=== PATIENT | female | born 1965 | race Caucasian/White ===

== ENCOUNTER 2018-09-06 13:40 | Emergency (ER) | payer SELFPAY ==
[~2018-09-06] VITALS: Ht 157.5 cm; Wt 72.6 kg
--- NOTE | 2018-09-06 14:09 | ED Headache ---
General Chief Complaint: Head/Cervical Problems Stated Complaint: MIGRAINE X 3 WKS Nursing Triage Note: Patient reports headache x 3 weeks. reports this is the 1st time she has seen a provider. states advil x 1 last night for 1st time. reports emesis last evening Nursing Sepsis Screen: No Definite Risk Source: patient Exam Limitations: no limitations History of Present Illness Date Seen by Provider: Sep 06, 2018 Time Seen by Provider: 14:09 Initial Comments 52-year-old female patient presents with 3 week onset of headache. Patient reports a history of headaches, but states this is much worse than her usual headaches. [place]. Patient does complain of sinus pressure. States she was exposed to "toxic mold" when she left here previously. She has had N/V the last 2 days. Timing/Duration: other (3 week onset) Severity/Quality: pressure (sinus pressure), throbbing Location: frontal Prior Headaches/Recent Trauma: other (patient reports history of headaches, but states this is different) Modifying Factors: worse with other (no improvement with Advil last night 1 dose.) Allergies and Home Medications Allergies Coded Allergies: No Known Drug Allergies (Unverified , 09/06/18) Home Medications No Active Prescriptions or Reported Meds Patient Home Medication List Home Medication List Reviewed: Yes Review of Systems Review of Systems Constitutional: No chills, No diaphoresis, No dizziness, No fever, No malaise, No weakness Eyes: Denies Blurred Vision, Denies Drainage, Denies Decreased Acuity, Denies Foreign Body Sensation, Denies Inflammation, Denies Pain, Denies Photophobia Ears, Nose, Mouth, Throat: denies ear pain, denies ear discharge; nose pain ((+) sinus pressure/pain and nasal congestion); denies nose discharge, denies epistaxis, denies mouth pain, denies mouth swelling, denies throat pain, denies throat swelling Respiratory: No cough, No dyspnea on exertion, No phlegm, No short of breath, No stridor, No wheezing Cardiovascular: No chest pain, No edema, No palpitations, No syncope Gastrointestinal: No abdominal pain, No constipation, No diarrhea; loss of appetite, nausea, vomiting Genitourinary: No dysuria, No frequency, No hematuria Musculoskeletal: no symptoms reported Skin: no symptoms reported Psychiatric/Neurological: Headache; Denies Numbness, Denies Paresthesia, Denies Seizure, Denies Tingling, Denies Weakness All Other Systems Reviewed Negative Unless Noted: Yes (Negative excepted noted.) Past [id number]-[id number]-[id number] Hx Past Med/Social Hx: Reviewed and Corrections made Patient Social History Alcohol Use: Denies Use Recreational Drug Use: No 2nd Hand Smoke Exposure: No Recent Foreign Travel: No Contact w/Someone Who Travel: No Recent Infectious Disease Expo: No Recent Hopitalizations: No Seasonal Allergies Seasonal Allergies: Yes (seasonal and mold allergies.) Past Medical History Surgeries: No Respiratory: Yes Asthma (as a kid) Cardiac: No Neurological: Yes Headaches /Migraines Genitourinary: No Gastrointestinal: No Musculoskeletal: No Endocrine: No HEENT: No Cancer: No Psychosocial: No Integumentary: No Blood Disorders: No Family Medical History Reviewed Nursing Family Hx No Pertinent Family Hx Physical Exam Vital Signs Vital Signs - First Documented 09/06/18 13:52 Temp 98.2 Pulse 100 Resp 18 B/P (MAP) 145/110 (122) Pulse Ox 95 Capillary Refill : Less Than 3 Seconds Height, Weight, BMI Height: 5'2.00" Weight: 160lbs. oz. [id number]; BMI Method:Stated General Appearance: WD/WN, no apparent distress HEENT: PERRL/EOMI, TMs normal, pharynx normal, other (positive nasal congestion. Positive maxillary sinus tenderness. No drainage noted.) Neck: full range of motion, supple, lymphadenopathy (R), lymphadenopathy (L), tender lateral (posterior muscle spasm with tenderness.); No tender midline Cardiovascular: normal peripheral pulses, regular rate, rhythm, no edema, no gallop, no JVD, no murmur Respiratory: lungs clear, normal breath sounds, no respiratory distress, no ac cessory muscle use Gastrointestinal: normal bowel sounds, non tender, soft, no organomegaly; No distended Back: normal inspection, no CVA tenderness, no vertebral tenderness Extremities: no pedal edema, no calf tenderness, normal capillary refill Psychiatric: alert, oriented x 3 Crainal Nerves: normal hearing, normal speech, PERRL; No abnormal pupil position, No abnormal speech, No facial asymmetry, No facial droop, No facial paresthesias, No facial weakness, No gaze palsy, No hearing deficit (R), No hearing deficit (L), No tongue deviation to R, No tongue deviation to L Coordination/Gait: normal finger to nose, normal gait, negative Romberg's sign Motor/Sensory: no motor deficit, no sensory deficit, no pronator drift Skin: normal color, warm/dry Progress/Results/Core Measures Results/Orders Lab Results Laboratory Tests Test 09/06/18 14:40 Range/Units White Blood Count 14.9 H 4.3-11.0 10^3/uL Red Blood Count 5.19 4.35-5.85 10^6/uL Hemoglobin 16.7 H 11.5-16.0 G/DL Hematocrit 48 35-52 % Mean Corpuscular Volume 92 80-99 FL Mean Corpuscular Hemoglobin 32 25-34 PG Mean Corpuscular Hemoglobin Concent 35 32-36 G/DL Red Cell Distribution Width 12.5 10.0-14.5 % Platelet Count 270 130-400 10^3/uL Mean Platelet Volume 10.0 7.4-10.4 FL Neutrophils (%) (Auto) 79 H 42-75 % Lymphocytes (%) (Auto) 15 12-44 % Monocytes (%) (Auto) 6 0-12 % Eosinophils (%) (Auto) 0 0-10 % Basophils (%) (Auto) 0 0-10 % Neutrophils # (Auto) 11.8 H 1.8-7.8 X 10^3 Lymphocytes # (Auto) 2.2 1.0-4.0 X 10^3 Monocytes # (Auto) 0.9 0.0-1.0 X 10^3 Eosinophils # (Auto) 0.0 0.0-0.3 10^3/uL Basophils # (Auto) 0.0 0.0-0.1 10^3/uL Neutrophils % (Manual) 79 % Lymphocytes % (Manual) 14 % Monocytes % (Manual) 7 % Eosinophils % (Manual) 0 % Basophils % (Manual) 0 % Blood Morphology Comment NORMAL Sodium Level 143 135-145 MMOL/L Potassium Level 3.9 3.6-5.0 MMOL/L Chloride Level 101 98-107 MMOL/L Carbon Dioxide Level 22 21-32 MMOL/L Anion Gap 20 H 5-14 MMOL/L Blood Urea Nitrogen 18 7-18 MG/DL Creatinine 0.94 0.60-1.30 MG/DL Estimat Glomerular Filtration Rate > 60 BUN/Creatinine Ratio 19 Glucose Level 105 70-105 MG/DL Calcium Level 10.2 H 8.5-10.1 MG/DL Corrected Calcium 8.5-10.1 MG/DL Total Bilirubin 0.5 0.1-1.0 MG/DL Aspartate Amino Transf (AST/SGOT) 40 H 5-34 U/L Alanine Aminotransferase (ALT/SGPT) 57 H 0-55 U/L Alkaline Phosphatase 45 40-136 U/L C-Reactive Protein High Sensitivity 0.19 0.00-0.50 MG/DL Total Protein 8.7 H 6.4-8.2 GM/DL Albumin 5.0 H 3.2-4.5 GM/DL My Orders Orders - TIANA ANAND Ed Iv/Invasive Line Start (09/06/18 14:19) Cbc With Automated Diff (09/06/18 14:19) Comprehensive Metabolic Panel (09/06/18 14:19) Ns Iv 1000 Ml (Sodium Chloride 0.9%) (09/06/18 14:19) Ketorolac Injection (Toradol Injection) (09/06/18 14:19) Orphenadrine Injection (Norflex Injectio (09/06/18 14:19) Ondansetron Injection (Zofran Injectio (09/06/18 14:30) Ct Head Wo (09/06/18 14:23) Manual Differential (09/06/18 14:40) Hs C Reactive Protein (09/06/18 14:52) Chest Pa/Lat (2 View) (09/06/18 15:33) Medications Given in ED Current Medications Medications Dose Ordered Sig/Moses Route Start Time Stop Time Status Last Admin Dose Admin Ondansetron HCl 4 mg ONCE ONCE IVP 09/06/18 14:30 09/06/18 14:31 DC 09/06/18 14:37 4 MG Sodium Chloride 1,000 ml @ 0 mls/hr Q0M ONCE IV 09/06/18 14:19 09/06/18 14:23 DC 09/06/18 14:37 0 MLS/HR Vital Signs/I&O 09/06/18 13:52 Temp 98.2 Pulse 100 Resp 18 B/P (MAP) 145/110 (122) Pulse Ox 95 Blood Pressure Mean: 122 Diagnostic Imaging Diagonstic Imaging: CT Plain Films/CT/US/NM/MRI: head Comments Date of Exam:09/06/18 CT HEAD WO PROCEDURE: CT head without contrast. TECHNIQUE: Multiple contiguous axial images were obtained through the brain without the use of intravenous contrast. Auto Exposure Controls were utilized during the CT exam to meet ALARA standards for radiation dose reduction. INDICATION: Frontal headache FINDINGS: Ventricles normal in size, shape and position. There is no midline shift or mass effect. There is no hemorrhage or evidence of acute ischemia. No extra-axial fluid collection is seen. The bony calvarium, bony calvarium is normal. There is mucosal thickening in the floors of the maxillary sinuses. The frontal sinuses, ethmoids and sphenoids are clear. Mastoids are unremarkable. IMPRESSION: 1. Negative CT head. 2. Maxillary sinus disease. Dictated by: Dictated on workstation # [id number] Reviewed: Reviewed by Me (radiology report reviewed) Diagonstic Imaging: Xray Plain Films/CT/US/NM/MRI: chest Reviewed: Reviewed by Me (radiology report reviewed) Departure Impression Primary Impression: Migraine Additional Impressions: Acute maxillary sinusitis Asthma exacerbation, mild Disposition: 01 HOME, SELF-CARE Condition: Improved Departure-Patient Inst. Decision time for Depature: 16:55 Referrals: NO,LOCAL PHYSICIAN (PCP/Family) Primary Care Physician Patient Instructions: Migraine Headaches in Adults, Sinusitis, Adult (DC) Add. Discharge Instructions: All discharge instructions reviewed with patient and/or family. Voiced understanding. Medications as instructed. Tylenol Extra Strength [id number] as directed for pain or headache. Ibuprofen 800 mg by mouth ev lexii 8 hours as needed for pain or headache. Rest. Drink plenty of fluids. Follow-up with the family practitioner of your choice to establish care and for recheck within the next 7-10 days. Call for appointment time tomorrow morning. Return in the emergency department for worsened symptoms, fever, dizziness, changes in vision, slurred speech, decreased urination, chest pain, shortness of air, or any other concerns. Scripts Cephalexin (Cephalexin) 500 Mg Capsule 500 MG PO TID, #21 CAP 0 Refills Prov: TIANA ANAND 09/06/18 Prednisone (Prednisone) 20 Mg Tab 40 MG PO DAILY, #10 TAB 0 Refills Prov: TIANA ANAND 09/06/18 Ondansetron (Ondansetron Odt) 4 Mg Tab.rapdis 4 MG PO Q6H PRN for NAUSEA/VOMITING, #10 TAB 0 Refills Prov: TIANA ANAND 09/06/18 Work/School Note: Local [employer] Listing TIANA ANAND Sep 06, 2018 14:09
[2018-09-06] MEDS ORDERED: ORPHENADRINE 60 MG/2 ML (NORFLEX) AMP IV STA (14:19)
[2018-09-06] MEDS ORDERED: NS IV 1000 ML 1,000 ML IV ONE (14:19)
[2018-09-06] MEDS ORDERED: KETOROLAC 30 MG/ML VIAL IVP STA (14:19)
[2018-09-06] MEDS ORDERED: ONDANSETRON 4 MG/2 ML (SDV) Z0FRAN IVP ONE (14:30)
[2018-09-06 14:49] LABS: BASOPHILS % (AUTO) 0 % (0-10); EOSINOPHILS % (AUTO) 0 % (0-10); HEMATOCRIT 48 % (35-52); HEMOGLOBIN 16.7 G/DL (11.5-16.0); LYMPHOCYTES # (AUTO) 2.2 X 10^3 (1.0-4.0); LYMPHOCYTES % (AUTO) 15 % (12-44); MEAN CORPUSCULAR HEMOGLOBIN 32 PG (25-34); MEAN CORPUSCULAR HGB CONC 35 G/DL (32-36); MEAN CORPUSCULAR VOLUME 92 FL (80-99); MONOCYTES # (AUTO) 0.9 X 10^3 (0.0-1.0); MONOCYTES % (AUTO) 6 % (0-12); NEUTROPHILS # (AUTO) 11.8 X 10^3 (1.8-7.8); NEUTROPHILS % (AUTO) 79 % (42-75); PLATELET COUNT 270 10^3/uL (130-400); RED CELL DISTRIBUTION WIDTH 12.5 % (10.0-14.5); WHITE BLOOD COUNT 14.9 10^3/uL (4.3-11.0)
--- NOTE | 2018-09-06 14:59 | Diagnostic Imaging Report ---
PROCEDURE: CT head without contrast. TECHNIQUE: Multiple contiguous axial images were obtained through the brain without the use of intravenous contrast. Auto Exposure Controls were utilized during the CT exam to meet ALARA standards for radiation dose reduction. INDICATION: Frontal headache FINDINGS: Ventricles normal in size, shape and position. There is no midline shift or mass effect. There is no hemorrhage or evidence of acute ischemia. No extra-axial fluid collection is seen. The bony calvarium, bony calvarium is normal. There is mucosal thickening in the floors of the maxillary sinuses. The frontal sinuses, ethmoids and sphenoids are clear. Mastoids are unremarkable. IMPRESSION: 1. Negative CT head. 2. Maxillary sinus disease. Dictated by: Dictated on workstation # [id number]
[2018-09-06 15:09] LABS: ALANINE AMINOTRANSFERASE 57 U/L (0-55); ALKALINE PHOSPHATASE 45 U/L (40-136); BILIRUBIN,TOTAL 0.5 MG/DL (0.1-1.0); BUN/CREATININE RATIO 19; CALCIUM 10.2 MG/DL (8.5-10.1); CARBON DIOXIDE 22 MMOL/L (21-32); CHLORIDE 101 MMOL/L (98-107); CREATININE SERUM 0.94 MG/DL (0.60-1.30); GFR ESTIMATED > 60; GLUCOSE 105 MG/DL (70-105); POTASSIUM 3.9 MMOL/L (3.6-5.0); SODIUM 143 MMOL/L (135-145); TOTAL PROTEIN 8.7 GM/DL (6.4-8.2)
[2018-09-06 15:26] LABS: BASOPHILS % (MANUAL) 0 %; EOSINOPHILS % (MANUAL) 0 %; LYMPHOCYTES % (MANUAL) 14 %; MONOCYTES % (MANUAL) 7 %; NEUTROPHILS % (MANUAL) 79 %; RBC MORPH NORMAL
--- NOTE | 2018-09-06 16:36 | Diagnostic Imaging Report ---
INDICATION: Cough COMPARISON: None. FINDINGS: Frontal and lateral views the chest demonstrate clear lungs bilaterally. The heart size is normal. There is no pneumothorax. Osseous structures are normal. IMPRESSION: No acute findings. Normal chest. Dictated by: Dictated on workstation # [id number]
[2018-09-06] MEDS ORDERED: CEPH500C PO (16:58)
[2018-09-06] MEDS ORDERED: ONDA4TAB11 PO (16:58)
[2018-09-06] MEDS ORDERED: PRD20T PO (16:58)
[2018-09-06] MEDS ORDERED: RX-ALBUTEROL INHALER (PROAIR) 8 GM IH STA (16:59)
[2018-09-06 17:08] VITALS: BP 138/94
== END 2018-09-06 17:08 | disposition home or self-care (01) ==
LOC: ER 13:42
DX: G43.909 Migraine, unspecified, not intractable, without status migrainosus (principal); J45.901 Unspecified asthma with (acute) exacerbation; J01.00 Acute maxillary sinusitis, unspecified
CPT/HCPCS: 36415; 70450; 71046; 80053; 85007; 85027; 86141